=== PATIENT | female | born 1950 | race Caucasian/White ===

== ENCOUNTER → 2017-01-24 | Day surgery (SDC) | payer MEDICARE, BC ==
[2017-01-24] VITALS (8 sets, daily range): BP systolic 109–135; BP diastolic 65–82
[~2017-01-24] VITALS: Ht 154.9 cm; Wt 57.6 kg
[~2017-01-24] MED LIST: CRESTOR10 M2 ORAL; LR 1000ml ONE; Lidocaine 1% MPF 10mg/ml 5ml ONE; METRONIDAZOLE500 MG ORAL; NIAC PO; Propofol 10mg/ml 20ml IV ONE
--- NOTE | 2017-01-24 08:39 | Short Stay Surgery H&P ---
History of Present Illness History of Present Illness Chief Complaint Abdominal pains, screening colon HPI Marcela Stallworth is a 66 year old female who was admitted on for Abdominal Pain Patient History Allergies: Coded Allergies: CODEINE (Verified Adverse Reaction, Intermediate, nausea; vomiting, ) PAST MEDICAL HISTORY: Past Surgeries: Social History: Medication History Scheduled Metronidazole* (Flagyl*), 500 MG ORAL THREE TIMES A DAY, (Reported) Rosuvastatin Calcium* (Crestor*), 10 MG ORAL HS, (Reported) [niac], 1 CAP PO DAILY, (Reported) Review of Systems Cardiovascular: Reports: no symptoms Respiratory: Reports: no symptoms Skeletal: Reports: no symptoms Gastrointestinal: Reports: other Genitourinary: Reports: no symptoms Neurologic: Reports: no symptoms Endocrine: Reports: no symptoms Hematologic: Reports: no symptoms Physical Exam Vital Signs Last Vital Signs Date Time Temp Pulse Resp B/P Pulse Ox O2 Delivery O2 Flow Rate FiO2 01/24/17 08:11 96.9 59 18 121/82 100 Room Air Skin: normal HENT: normal Heart: normal Lungs: normal Abdomen: normal Extremities: normal Genitourinary: normal Plan Plan of Care Upper and lower GI endoscopy Preop Interventions Nnone. Summary of Findings See the reports. Final Diagnosis: Attestation Are the patient's medical conditions optimized for surgery? Attestation Response: yes OLIVIA GUPTA Jan 24, 2017 08:39
--- NOTE | 2017-01-24 08:40 | Pre-Procedure Note/Attestation ---
Pre-Procedure Note/Attestation Complete Prior to Procedure Planned Procedure: left Procedure Narrative: The examination of the upper and the lower Gi tract. Indications for Procedure Pre-Operative Diagnosis: R/O peptic ulcer and colon tumor. Attestation I attest that I discussed the nature of the procedure; its benefits; risks and complications; and alternatives (and the risks and benefits of such alternatives ), prior to the procedure, with the patient (or the patient's legal insurance service representative). I attest that, if there was a reasonable possibility of needing a blood transfusion, the patient (or the patient's legal insurance service representative) was given the [place] [facility] standardized written summary, pursuant to the Keyshawn Bogdan Blood Safety Act ([place] Health and Safety Code # 1645, as amended). I attest that I re-evaluated the patient just prior to the surgery and that there has been no change in the patient's H&P, except as documented below: ALONSOSAID Jan 24, 2017 08:40
--- NOTE | 2017-01-24 08:41 | Pre-Procedure Note/Attestation ---
Pre-Procedure Note/Attestation Complete Prior to Procedure Planned Procedure: left Procedure Narrative: The examination of the upper and the lower GI tract Indications for Procedure Pre-Operative Diagnosis: R/O peptic ulcer and colon tumor. Attestation I attest that I discussed the nature of the procedure; its benefits; risks and complications; and alternatives (and the risks and benefits of such alternatives ), prior to the procedure, with the patient (or the patient's legal sales representative trainee). I attest that, if there was a reasonable possibility of needing a blood transfusion, the patient (or the patient's legal sales representative trainee) was given the [facility] standardized written summary, pursuant to the Keyshawn [place] Blood Safety Act ([place] Health and Safety Code # 1645, as amended). I attest that I re-evaluated the patient just prior to the surgery and that there has been no change in the patient's H&P, except as documented below: ALONSOSAID Jan 24, 2017 08:41
--- NOTE | 2017-01-24 09:00 | Anethesia Preoperative Eval ---
Anesthesia Pre-op PMH/ROS General Date of Evaluation: Jan 24, 2017 Time of Evaluation: 08:58 ASA Score: ASA 1 Mallampati Score Class I : Soft palate, uvula, fauces, pillars visible Class II: Soft palate, uvula, fauces visible Class III: Soft palate, base of uvula visible Class IV: Only hard plate visible Mallampati Classification: Class II Surgeon: yunior Diagnosis: abd pain Surgical Procedure: egd/colonoscopy Anesthesia History: none Family History: no anesthesia problems Allergies: Coded Allergies: CODEINE (Verified Adverse Reaction, Intermediate, nausea; vomiting, ) Medications: see eMAR Past Medical History Cardiovascular: Denies: CAD, HTN, CA, arrhythmia, other, valve dz Pulmonary: Denies: COPD, MAYRA, asthma, other Gastrointestinal/Genitourinary: Denies: CRI, ESRD, GERD, other Neurologic/Psychiatric: Denies: CVA, TIA, dementia, depression/anxiety, other Endocrine: Denies: DM, hypothyroidism, other, steroids Hematology/Immune: Denies: DVT, anemia, bleeding disorder, other Musculoskeletal/Integumentary: Denies: DDD, DJD, OA, RA, edema, other Anesthesia Pre-op Phys. Exam Physician Exam Last Vital Signs Date Time Temp Pulse Resp B/P Pulse Ox O2 Delivery O2 Flow Rate FiO2 01/24/17 08:11 96.9 59 18 121/82 100 Room Air Constitutional: NAD Neurologic: CN 2-12 intact Cardiovascular: RRR Respiratory: CTA Gastrointestinal: S/NT/ND Airway Exam Mallampati Classification 2 Mallampati Score: Class II MO: full ROM: full Dentures: no lower, no upper Anesthesia Pre-op A/P Studies Pre-op Studies: EKG - SR Risk Assessment & Plan Plan: mac Status Change Before Surgery: No Pre-Antibiotics Drug: none TARRILLION,DANIEL [employer]ER Jan 24, 2017 09:00
--- NOTE | 2017-01-24 09:06 | Endoscopy Procedure Note ---
Endoscopy Procedure Note Procedures Performed: EGD - Normal upper GI endoscopy biopsy obtained from prepyloric area., colonoscopy - Highly redundant left colon with diverticular lesions consistent with the left colonic diverticulosis otherwise normal colonoscopy without polyps/tumor etc. Specimen: yes Pt Tolerated Procedure Well: Yes Estimated Blood Loss: none Anesthesiologist: Dr. Tim Anesthesia: moderate sedation Medication Given: see anesthesia record Implant(s) used?: No 50 yrs or older w/o bx or poly: Yes 10yrs. F/U not recommended: Yes If not recommended, why?: 10 yrs. F/U needed: Yes Med reason:<3 yrs.: System Reason:<3 yrs.: OLIVIA GUPTA Jan 24, 2017 09:06
--- NOTE | 2017-01-24 09:07 | Discharge Instructions ---
Discharge Instructions Discharge Instructions Follow up with: visit the doctor after 2 weeks in the office. For Congestive Heart Failure Reminder Report to your physician any weight gain of 5 pounds or more in one week. OLIVIA GUPTA Jan 24, 2017 09:07
--- NOTE | 2017-01-24 09:27 | Immediate Post-Op Evaluation ---
Immediate Post-Op Evalulation Immediate Post-Op Evalulation Procedure: EGD/Colonoscopy Date of Evaluation: Jan 24, 2017 Time of Evaluation: 09:21 Blood Pressure Systolic: 115 Blood Pressure Diastolic: 65 Pulse Rate: 69 Respiratory Rate: 14 O2 Sat by Pulse Oximetry: 99 Temperature (Fahrenheit): 97.5 Nausea: No Vomiting: No Complications none Patient Status: awake, reacts, patent Hydration Status: adequate Drug: none GUYRIDANIEL FIORE CRNA Jan 24, 2017 09:27
--- NOTE | 2017-01-24 10:08 | 48 Hour Post Anesthesia Eval ---
Post Anesthesia Evaluation Procedure: EGD/Colonoscopy Date of Evaluation: Jan 24, 2017 Time of Evaluation: 10:07 Blood Pressure Systolic: 122 0: 73 Pulse Rate: 85 O2 Sat by Pulse Oximetry: 98 Airway: patent Nausea: No Vomiting: No Hydration Status: adequate Mental Status/LOC: patient returned to baseline Post-Anesthesia Complications: none DANIEL TEJEDA CRNA Jan 24, 2017 10:08
--- NOTE | 2017-01-24 11:38 | Operative Note - Dictated ---
DATE OF OPERATION: 01/24/2017 PROCEDURE: Esophagogastroduodenoscopy with biopsy. PREOPERATIVE DIAGNOSES: 1. Abdominal pain. 2. Gastroesophageal reflux. POSTOPERATIVE DIAGNOSES: Completely normal upper gastrointestinal endoscopy. Biopsy was taken from prepyloric area. MEDICATIONS USED: Per Dr. Salgado, anesthesiologist. INSTRUMENT: GIF Olympus upper gastrointestinal video endoscope. DESCRIPTION OF PROCEDURE: The patient after arriving endoscopy unit, was told about risks and benefits of the procedure, which she accepted and signed the informed consent. She was then put on the left lateral decubitus position. After adequate IV sedation, scope gently passed through the cricopharyngeal area, was lodged into the upper esophagus, gradually advanced towards gastroesophageal junction. The entire length of the esophagus looks normal. No evidence of varices, inflammatory process, ulceration, etc. was found. GE junction also looked normal without hiatal hernia or Quezada's. At this time, the scope was advanced into the stomach. Gastric cavity was distended and gradually the areas of the fundus and the body and the antrum were examined, which revealed normal finding. A retroflexion maneuver was also applied. The area of the gastroesophageal junction was examined in a closer fashion, which did not reveal any other pathology. Finally, one random biopsy from prepyloric area was obtained and subsequently, the scope was passed through the pylorus. First and second portion of duodenum were found to be completely normal. At this time, the scope was pulled out. The procedure was terminated. The patient tolerated the procedure well. Said Cecile Randolph DR: Yudith JOB#: [id number] CC:
--- NOTE | 2017-01-24 16:28 | Operative Note - Dictated ---
DATE OF OPERATION: 01/24/2017 PREOPERATIVE DIAGNOSIS: Screening colonoscopy, abdominal pain. POSTOPERATIVE DIAGNOSIS: Highly redundant left colon with left colonic diverticulosis, otherwise normal total colonoscopy. MEDICATIONS USED: Per Dr. Salgado anesthesiologist. INSTRUMENT: GIF Olympus video colonoscope. DESCRIPTION OF PROCEDURE: The patient after arriving in the endoscopy unit was told about risks and benefits of the procedure, which she accepted and signed the informed consent. She was then put on the left lateral decubitus position. After adequate IV sedation, the scope was gently passed through the anal area, which revealed basically normal finding including a retroflexion maneuver, which was applied in the rectum did not reveal any tumor or inflammatory process, ulcers, polyps, etc. At this time, the scope was advanced further up into the rectosigmoid from there into highly redundant left colon, which revealed evidence of diverticular lesions of moderate degree, however, there was no polyps or tumors. in this area. Finally, the scope reached toward the splenic flexure. From there, it was guided into the transverse colon, hepatic flexure, and right colon all the way to the base of the cecum. All these areas looked normal and no particular other pathologies were found. The colon cleanup was adequate and at this point after 7 minutes, which took the scope was gradually pulled out and during this process of time, there was no other pathology found. The patient tolerated the procedure well and left the endoscopy room in a good condition. Said Cecile Randolph DR: BAILEY JOB#: [id number] CC: ADI
== END | disposition home or self-care (01) ==
LOC: GAS 07:32 → EDBD 07:32
DX: Z12.11 Encounter for screening for malignant neoplasm of colon (principal); K29.50 Unspecified chronic gastritis without bleeding; B96.81 Helicobacter pylori [H. pylori] as the cause of diseases classified elsewhere; K57.30 Diverticulosis of large intestine without perforation or abscess without bleeding; Q43.8 Other specified congenital malformations of intestine; K21.9 Gastro-esophageal reflux disease without esophagitis; Z88.5 Allergy status to narcotic agent
CPT/HCPCS: 43239; G0121; J2405; J2704; J7120; 94003; 94150